=== PATIENT | male | born 1970 ===

== ENCOUNTER → 2018-06-24 19:59 | Outpatient (REF) | payer OTHER, MEDICAID, SELFPAY ==
[2018-06-24 20:22] LABS: Add Manual Diff / Slide Review NO; Basophils Absolute Auto 100 /uL (0-100); Basophils Percent Auto 0.8 % (0-2); Eosinophils Absolute Auto 300 /uL (0-450); Eosinophils Percent Auto 3.7 % (2-4); Hematocrit 41.8 % (41-53); Hemoglobin 13.6 g/dL (13.5-17.5); Lymphocytes Absolute Auto 1700 /uL (1100-4500); Lymphocytes Percent Auto 20.1 % (25-40); Mean Corpuscular HGB Conc 32.4 % (30-36); Mean Corpuscular Hemoglobin 28.7 PG (26-34); Mean Corpuscular Volume 88.5 fL (80-100); Monocytes Absolute Auto 600 /uL (0-900); Neutrophils Absolute Auto 5600 /uL (1500-7000); Neutrophils Percent Auto 68.4 % (50-75); Platelet Count 329 X10^3/uL (150-400); Red Blood Cell Count 4.72 X10^6/uL (4.5-5.9); White Blood Cell Count 8.3 X10^3/uL (4.5-11.0)
[2018-06-24 20:27] LABS: HEMOLYSIS < 15 (0-50); Iron 69 ug/dL (49-181)
[2018-06-24 20:32] LABS: C-Reactive Protein Quant < 0.5 mg/dL (<1.0)
[2018-06-24 20:37] LABS: Percent Iron Saturation 20 % (20-50); Total Iron Binding Capacity 352 ug/dL (261-462); Transferrin 278 mg/dL (206-381)
[2018-06-24 20:43] LABS: Vitamin D 25 Hydroxy (D3) 51.6 ng/mL (30.0-100.0)
[2018-06-24 21:03] LABS: Ferritin 17.1 ng/mL (17.9-464)
[2018-06-25 10:03] LABS: Erythrocyte Sedimentation Rate 9 MM/HR (0-15)
== END ==
LOC: LAB 19:59
PROVIDERS: Visit Provider Naturopath
DX: K51.011 Ulcerative (chronic) pancolitis with rectal bleeding (principal); M16.0 Bilateral primary osteoarthritis of hip; D50.9 Iron deficiency anemia, unspecified; R53.83 Other fatigue
CPT/HCPCS: 36415; 82306; 82728; 83540; 83550; 85025; 85651; 86140